=== PATIENT | female | born 1945 | race Caucasian/White ===

== ENCOUNTER 2022-07-21 11:49 | Observation (INO) | payer MEDICARE, OTHER ==
[~2022-07-21] VITALS: Ht 160 cm; Wt 57.3 kg
[2022-07-21] MEDS ORDERED: OYST1TAB PO (13:11)
[2022-07-21] MEDS ORDERED: VITMTA PO (13:11)
[2022-07-21] MEDS ORDERED: VITA100093 PO (13:11)
[2022-07-21] MEDS ORDERED: HOME MED LIST COMPLETE! XX SCH (13:15)
[2022-07-21 13:35] LABS: BASO # 0.1 10^3/uL (0.0-0.2); BASO % 0.5 % (0.0-1.0); EOS % 0.3 % (0.0-3.0); HEMATOCRIT 38.8 % (36.0-47.0); HEMOGLOBIN 12.4 g/dl (12.0-15.5); LYMPH # 1.6 10^3/uL (1.5-5.0); LYMPH % 14.7 % (24.0-44.0); MEAN CORPUSCULAR HEMOGLOBIN 29.8 pg (27.0-33.0); MEAN CORPUSCULAR VOLUME 93.3 fl (80.0-96.0); MONO # 0.7 10^3/uL (0.0-0.8); NEUTROPHILS # 8.5 10^3/uL (1.5-8.5); NEUTROPHILS % 77.6 % (36.0-66.0); PLATELET COUNT, AUTOMATED 358 10^3/uL (150-450); RED BLOOD COUNT 4.16 10^6/uL (4.00-5.40); WHITE BLOOD COUNT 10.9 10^3/uL (4.0-10.0)
[2022-07-21 14:04] LABS: BLOOD UREA NITROGEN 17 MG/DL (9-23); CALCIUM LEVEL 9.4 MG/DL (8.3-10.6); CARBON DIOXIDE LEVEL 27 MMOL/L (20-31); CHLORIDE LEVEL 104 MMOL/L (98-107); CREATININE FOR GFR 0.72 MG/DL (0.55-1.30); GLOMERULAR FILTRATION RATE > 60.0 (>39); GLUCOSE, FASTING 115 MG/DL (74-106); POTASSIUM SERUM 4.1 MMOL/L (3.5-5.1); SODIUM LEVEL 138 MMOL/L (136-145)
[2022-07-21 14:22] LABS: RSV AMPLIFICATION NEGATIVE (NEGATIVE)
[2022-07-21] MEDS ORDERED: MORPHINE 2 MG/ML 1ML VIAL IV ONE (14:25)
[2022-07-21] MEDS ORDERED: SUGAMMADEX SODIUM 500 MG/5 ML VIAL (BRIDION) As Ordered ONE (17:33)
[2022-07-21] MEDS ORDERED: ONDANSETRON 4MG 2ML VIAL As Ordered ONE (17:33)
[2022-07-21] MEDS ORDERED: MIDAZOLAM INJ 2MG/2ML VIAL As Ordered ONE (17:33)
[2022-07-21] MEDS ORDERED: PHENYLephrine 500MCG 5ML (100MCG/ML) SYRINGE As Ordered ONE (17:33)
[2022-07-21] MEDS ORDERED: propofoL 200 MG/20 ML VIAL As Ordered ONE (17:33)
[2022-07-21] MEDS ORDERED: fentaNYL 100 MCG/2 ML INJECTION As Ordered ONE (17:33)
[2022-07-21] MEDS ORDERED: LIDOCAINE 2% 100MG/5ML SDV (FOR ANES.) As Ordered ONE (17:33)
[2022-07-21] MEDS ORDERED: ROCURONIUM BROMIDE 50MG/5ML VIAL As Ordered ONE (17:33)
[2022-07-21] MEDS ORDERED: ceFAZolin 2 GM/D5W 50 ML IV BAG As Ordered ONE (17:47)
[2022-07-21] MEDS ORDERED: ACETAMINOPHEN 1000MG 100ML IV BAG As Ordered ONE (18:03)
[2022-07-21] MEDS ORDERED: ePHEDrine SULFATE 25 MG/5 ML(5MG/ML) SYRINGE As Ordered ONE (18:33)
[2022-07-21] MEDS ORDERED: ONDANSETRON 4MG 2ML VIAL IV PRN (19:10)
[2022-07-21] MEDS ORDERED: fentaNYL 100 MCG/2 ML INJECTION IV PRN (19:10)
[2022-07-21] MEDS ORDERED: HYDROMORPHONE HCL 0.5 MG/ 0.5 ML SYRINGE IV PRN (19:10)
[2022-07-21] MEDS ORDERED: oxyCODONE 5MG TAB PO PRN (19:10)
[2022-07-21] MEDS ORDERED: LR 1,000 ML IV SCH ×2 (19:10→20:00)
[2022-07-21 21:15] VITALS: BP 162/82; TEMP 98.2; O2SAT 94
[2022-07-21] MEDS ORDERED: amLODIPine 5 MG TAB PO ONE (21:35)
[2022-07-21 21:49] VITALS: BP 135/70; TEMP 97.9; O2SAT 96
[2022-07-21] MEDS ORDERED: CEPACOL LOZENGE PO PRN (21:55)
[2022-07-21 21:57] VITALS: BP 135/70
[2022-07-21 22:31] VITALS: BP 137/69; TEMP 98.1; O2SAT 98
[2022-07-21 23:38] VITALS: BP 124/63; TEMP 98.1; O2SAT 99
[2022-07-22 00:43] VITALS: BP 126/62; TEMP 97.9; O2SAT 100
[2022-07-22 04:46] VITALS: BP 136/61; TEMP 98.1; O2SAT 99
[2022-07-22 07:17] LABS: HEMATOCRIT 32.6 % (36.0-47.0); HEMOGLOBIN 10.7 g/dl (12.0-15.5); MEAN CORPUSCULAR HEMOGLOBIN 30.1 pg (27.0-33.0); MEAN CORPUSCULAR HGB CONC 32.8 g/dl (32.0-36.5); MEAN CORPUSCULAR VOLUME 91.8 fl (80.0-96.0); PLATELET COUNT, AUTOMATED 331 10^3/uL (150-450); RED BLOOD COUNT 3.55 10^6/uL (4.00-5.40)
[2022-07-22 07:45] LABS: BLOOD UREA NITROGEN 17 MG/DL (9-23); CALCIUM LEVEL 8.5 MG/DL (8.3-10.6); CARBON DIOXIDE LEVEL 28 MMOL/L (20-31); CHLORIDE LEVEL 103 MMOL/L (98-107); CREATININE FOR GFR 0.75 MG/DL (0.55-1.30); GLOMERULAR FILTRATION RATE > 60.0 (>39); GLUCOSE, FASTING 108 MG/DL (74-106); POTASSIUM SERUM 4.5 MMOL/L (3.5-5.1); SODIUM LEVEL 136 MMOL/L (136-145)
[2022-07-22] MEDS: VITAMIN D 1,000 INTERNATIONAL UNITS TABLET PO SCH (09:37)
[2022-07-22] MEDS: MULTIVITAMINS/MINERALS THERAP 1 TAB PO SCH (09:37)
[2022-07-22] MEDS: OYSTER SHELL CALCIUM 500 MG TAB PO SCH (09:37)
[2022-07-22] MEDS: MORPHINE 2 MG/ML 1ML VIAL IV PRN (11:53)
[2022-07-22] MEDS: ENOXAPARIN 40MG/0.4ML SYRINGE (J1650 PER 10MG) SC SCH (11:54)
[2022-07-22 14:05] VITALS: BP 126/66; TEMP 97.9; O2SAT 98
[2022-07-22 18:00] VITALS: BP 130/72; TEMP 98; O2SAT 97
[2022-07-22] MEDS: MORPHINE 4 MG/ML 1ML VIAL IV PRN (20:50)
[2022-07-22 21:30] VITALS: BP 133/69; TEMP 98.1; O2SAT 91
[2022-07-23] MEDS: MORPHINE 2 MG/ML 1ML VIAL IV PRN ×2 (02:50→19:57)
[2022-07-23 06:00] VITALS: BP 130/71; TEMP 97.5; O2SAT 94
[2022-07-23 07:09] LABS: HEMATOCRIT 31.4 % (36.0-47.0); HEMOGLOBIN 10.2 g/dl (12.0-15.5); MEAN CORPUSCULAR HEMOGLOBIN 29.8 pg (27.0-33.0); MEAN CORPUSCULAR HGB CONC 32.5 g/dl (32.0-36.5); MEAN CORPUSCULAR VOLUME 91.8 fl (80.0-96.0); PLATELET COUNT, AUTOMATED 320 10^3/uL (150-450); RED BLOOD COUNT 3.42 10^6/uL (4.00-5.40); WHITE BLOOD COUNT 13.5 10^3/uL (4.0-10.0)
[2022-07-23] MEDS: MORPHINE 4 MG/ML 1ML VIAL IV PRN ×2 (08:06→13:23)
[2022-07-23] MEDS: ENOXAPARIN 40MG/0.4ML SYRINGE (J1650 PER 10MG) SC SCH (09:46)
[2022-07-23] MEDS: MULTIVITAMINS/MINERALS THERAP 1 TAB PO SCH (09:46)
[2022-07-23] MEDS: VITAMIN D 1,000 INTERNATIONAL UNITS TABLET PO SCH (09:47)
[2022-07-23] MEDS: OYSTER SHELL CALCIUM 500 MG TAB PO SCH (09:47)
[2022-07-23 14:00] VITALS: BP 142/67; TEMP 98.6; O2SAT 95
[2022-07-23 22:10] VITALS: BP 136/69; TEMP 98.3; O2SAT 95
[2022-07-24 06:00] VITALS: BP 137/73; TEMP 98.8; O2SAT 96
[2022-07-24 06:16] LABS: HEMOGLOBIN 10.2 g/dl (12.0-15.5); MEAN CORPUSCULAR HEMOGLOBIN 29.7 pg (27.0-33.0); MEAN CORPUSCULAR HGB CONC 32.9 g/dl (32.0-36.5); MEAN CORPUSCULAR VOLUME 90.1 fl (80.0-96.0); PLATELET COUNT, AUTOMATED 287 10^3/uL (150-450); RED BLOOD COUNT 3.44 10^6/uL (4.00-5.40); WHITE BLOOD COUNT 15.6 10^3/uL (4.0-10.0)
[2022-07-24] MEDS ORDERED: ACETAMINOPHEN 500 MG TAB PO ONE (08:40)
[2022-07-24] MEDS: MULTIVITAMINS/MINERALS THERAP 1 TAB PO SCH (08:58)
[2022-07-24] MEDS: ENOXAPARIN 40MG/0.4ML SYRINGE (J1650 PER 10MG) SC SCH (08:59)
[2022-07-24] MEDS: OYSTER SHELL CALCIUM 500 MG TAB PO SCH (08:59)
[2022-07-24] MEDS: VITAMIN D 1,000 INTERNATIONAL UNITS TABLET PO SCH (08:59)
[2022-07-24] MEDS ORDERED: FUROSEMIDE 20 MG TAB PO ONE (09:30)
[2022-07-24 14:00] VITALS: BP 134/73; TEMP 98.6; O2SAT 97
[2022-07-24] MEDS: ACETAMINOPHEN 500 MG TAB PO PRN ×2 (14:50→21:04)
[2022-07-24] MEDS: MORPHINE 2 MG/ML 1ML VIAL IV PRN (16:57)
[2022-07-24 22:00] VITALS: BP 131/68; TEMP 98.4; O2SAT 96
[2022-07-25 06:00] VITALS: BP 130/71; TEMP 97.7; O2SAT 96
[2022-07-25 06:31] LABS: HEMATOCRIT 30.1 % (36.0-47.0); MEAN CORPUSCULAR HEMOGLOBIN 30.2 pg (27.0-33.0); MEAN CORPUSCULAR HGB CONC 33.2 g/dl (32.0-36.5); MEAN CORPUSCULAR VOLUME 90.9 fl (80.0-96.0); PLATELET COUNT, AUTOMATED 343 10^3/uL (150-450); RED BLOOD COUNT 3.31 10^6/uL (4.00-5.40); WHITE BLOOD COUNT 19.5 10^3/uL (4.0-10.0)
[2022-07-25] MEDS: ACETAMINOPHEN 500 MG TAB PO PRN ×2 (06:38→21:18)
[2022-07-25 06:59] LABS: BLOOD UREA NITROGEN 25 MG/DL (9-23); CALCIUM LEVEL 8.8 MG/DL (8.3-10.6); CARBON DIOXIDE LEVEL 26 MMOL/L (20-31); CHLORIDE LEVEL 101 MMOL/L (98-107); CREATININE FOR GFR 0.66 MG/DL (0.55-1.30); GLOMERULAR FILTRATION RATE > 60.0 (>39); GLUCOSE, FASTING 116 MG/DL (74-106); PHOSPHORUS LEVEL 3.9 MG/DL (2.4-5.1); POTASSIUM SERUM 4.2 MMOL/L (3.5-5.1); SODIUM LEVEL 134 MMOL/L (136-145)
[2022-07-25] MEDS: VITAMIN D 1,000 INTERNATIONAL UNITS TABLET PO SCH (09:05)
[2022-07-25] MEDS: MULTIVITAMINS/MINERALS THERAP 1 TAB PO SCH (09:05)
[2022-07-25] MEDS: OYSTER SHELL CALCIUM 500 MG TAB PO SCH (09:05)
[2022-07-25] MEDS: ENOXAPARIN 40MG/0.4ML SYRINGE (J1650 PER 10MG) SC SCH (09:06)
[2022-07-25] MEDS ORDERED: NS 1,000 ML IV SCH (11:40)
[2022-07-25 21:20] VITALS: BP 131/72; TEMP 98.6; O2SAT 98
[2022-07-25 22:48] VITALS: BP 133/73; TEMP 97.5; O2SAT 97
[2022-07-26 05:37] VITALS: BP 132/74; TEMP 97.9; O2SAT 97
[2022-07-26] MEDS ORDERED: LACTOBACILLUS ACIDOPHILUS CAP (BACID) PO SCH (08:00)
[2022-07-26 08:27] LABS: BASO # 0.1 10^3/uL (0.0-0.2); BASO % 0.5 % (0.0-1.0); EOS # 0.1 10^3/uL (0.0-0.5); EOS % 0.6 % (0.0-3.0); HEMATOCRIT 27.1 % (36.0-47.0); LYMPH # 1.4 10^3/uL (1.5-5.0); LYMPH % 10.8 % (24.0-44.0); MEAN CORPUSCULAR HEMOGLOBIN 30.2 pg (27.0-33.0); MEAN CORPUSCULAR HGB CONC 33.2 g/dl (32.0-36.5); MEAN CORPUSCULAR VOLUME 90.9 fl (80.0-96.0); MONO # 1.4 10^3/uL (0.0-0.8); MONO % 10.2 % (2.0-8.0); NEUTROPHILS # 10.3 10^3/uL (1.5-8.5); NEUTROPHILS % 76.9 % (36.0-66.0); PLATELET COUNT, AUTOMATED 370 10^3/uL (150-450); RED BLOOD COUNT 2.98 10^6/uL (4.00-5.40); WHITE BLOOD COUNT 13.4 10^3/uL (4.0-10.0)
[2022-07-26 08:46] LABS: ALBUMIN 2.5 G/DL (3.2-5.2); ALKALINE PHOSPHATASE 64 U/L (46-116); ALT/SGPT 21 U/L (7.0-40); AST/SGOT 21 U/L (<34); BILIRUBIN,TOTAL 0.6 MG/DL (0.3-1.2); BLOOD UREA NITROGEN 25 MG/DL (9-23); CARBON DIOXIDE LEVEL 25 MMOL/L (20-31); CHLORIDE LEVEL 104 MMOL/L (98-107); CREATININE FOR GFR 0.59 MG/DL (0.55-1.30); GLOMERULAR FILTRATION RATE > 60.0 (>39); GLUCOSE, FASTING 93 MG/DL (74-106); MAGNESIUM LEVEL 1.9 MG/DL (1.8-2.4); PHOSPHORUS LEVEL 3.5 MG/DL (2.4-5.1); POTASSIUM SERUM 3.8 MMOL/L (3.5-5.1); SODIUM LEVEL 137 MMOL/L (136-145); TOTAL PROTEIN 5.9 G/DL (5.7-8.2)
[2022-07-26] MEDS: MULTIVITAMINS/MINERALS THERAP 1 TAB PO SCH (09:22)
[2022-07-26] MEDS: VITAMIN D 1,000 INTERNATIONAL UNITS TABLET PO SCH (09:22)
[2022-07-26] MEDS: ENOXAPARIN 40MG/0.4ML SYRINGE (J1650 PER 10MG) SC SCH (09:23)
[2022-07-26] MEDS: OYSTER SHELL CALCIUM 500 MG TAB PO SCH (09:23)
[2022-07-26] MEDS ORDERED: LOVE1INJ SC (10:01)
[2022-07-26] MEDS ORDERED: APAP325T4 PO (10:01)
[2022-07-26] MEDS ORDERED: PERC5TAB12 PO (10:01)
[2022-07-26] MEDS ORDERED: PROB250C PO (10:53)
[2022-07-26 11:00] LABS: IRON (FE) 13 UG/DL (50-170); PERCENT SATURATION 5.8 % (13.2-45.0); TOTAL IRON BINDING CAPACITY 226 UG/DL (250-425)
[2022-07-26 11:03] LABS: FERRITIN 176.6 NG/ML (7.3-270.7)
== END 2022-07-26 12:20 ==
LOC: EDBD 11:49 → M ED 11:49 → M ED INP 14:35 → M MS5PR 21:15
PROVIDERS: ADMIT Internal Medicine; ATTEND Internal Medicine
DX: S82.141A Displaced bicondylar fracture of right tibia, initial encounter for closed fracture (principal); S83.101A Unspecified subluxation of right knee, initial encounter; S70.351A Superficial foreign body, right thigh, initial encounter; W57.XXXA Bitten or stung by nonvenomous insect and other nonvenomous arthropods, initial encounter; W01.10XA Fall on same level from slipping, tripping and stumbling with subsequent striking against unspecified object, initial encounter; Y92.89 Other specified places as the place of occurrence of the external cause; Y93.K9 Activity, other involving animal care; D72.828 Other elevated white blood cell count; R19.7 Diarrhea, unspecified; R03.0 Elevated blood-pressure reading, without diagnosis of hypertension; M81.0 Age-related osteoporosis without current pathological fracture; M79.89 Other specified soft tissue disorders; Z88.2 Allergy status to sulfonamides; Z79.899 Other long term (current) drug therapy
CPT/HCPCS: 10120; 20690; 36415; 73552; 73564; 73590; 73700; 76000; 80048; 85025; 85027; 87040; 87168; 87631; 87801; 93005; 93041; 93970; 94760; 96361; 96372; 96374; 96376; 97110; 97116; 97161; 97165; 97530; 99285; C1713; C9290; G0378; J0131; J0690; J1100; J1650; J2250; J2370; J2405; J3010

== ENCOUNTER 2022-07-26 10:42 | Inpatient (IN) | payer MEDICARE, OTHER ==
[~2022-07-26] VITALS: Ht 160 cm; Wt 59.8 kg
[~2022-07-26 10:42] MED LIST: APAP325T4 PO; LOVE1INJ SC; OYST1TAB PO; PERC5TAB12 PO; VITA100093 PO; VITMTA PO
[2022-07-26] MEDS ORDERED: PROB250C PO (10:53)
[2022-07-26 12:15] VITALS: BP 148/69; TEMP 98; O2SAT 99
[2022-07-26 14:00] VITALS: BP 141/65; TEMP 98.2; O2SAT 97
[2022-07-26] MEDS ORDERED: traZODone 25MG PER 1/2 TABLET PO PRN (16:25)
[2022-07-26] MEDS: LACTOBACILLUS ACIDOPHILUS CAP (BACID) PO SCH (17:07)
[2022-07-26] MEDS: ACETAMINOPHEN 500 MG TAB PO SCH ×2 (17:07→20:50)
[2022-07-26 20:00] VITALS: BP 131/61; TEMP 98.3; O2SAT 96
[2022-07-26] MEDS: DOCUSATE SODIUM 100MG CAPSULE PO SCH (20:51)
[2022-07-26] MEDS: SENNA 8.6 MG TAB (SENOKOT) PO SCH (20:51)
[2022-07-27] MEDS: ACETAMINOPHEN 500 MG TAB PO SCH ×3 (04:36→21:15)
[2022-07-27 06:00] VITALS: BP 124/59; TEMP 99.3; O2SAT 97
[2022-07-27 06:36] LABS: BASO # 0.1 10^3/uL (0.0-0.2); BASO % 0.4 % (0.0-1.0); EOS # 0.1 10^3/uL (0.0-0.5); EOS % 0.6 % (0.0-3.0); HEMATOCRIT 25.2 % (36.0-47.0); HEMOGLOBIN 8.5 g/dl (12.0-15.5); LYMPH # 1.3 10^3/uL (1.5-5.0); LYMPH % 9.1 % (24.0-44.0); MEAN CORPUSCULAR HEMOGLOBIN 30.5 pg (27.0-33.0); MEAN CORPUSCULAR HGB CONC 33.7 g/dl (32.0-36.5); MEAN CORPUSCULAR VOLUME 90.3 fl (80.0-96.0); MONO # 1.4 10^3/uL (0.0-0.8); MONO % 9.7 % (2.0-8.0); NEUTROPHILS # 11.3 10^3/uL (1.5-8.5); NEUTROPHILS % 79.5 % (36.0-66.0); PLATELET COUNT, AUTOMATED 382 10^3/uL (150-450); RED BLOOD COUNT 2.79 10^6/uL (4.00-5.40); WHITE BLOOD COUNT 14.3 10^3/uL (4.0-10.0)
[2022-07-27 07:28] LABS: ALBUMIN 2.4 G/DL (3.2-5.2); ALKALINE PHOSPHATASE 64 U/L (46-116); ALT/SGPT 29 U/L (7.0-40); AST/SGOT 30 U/L (<34); BILIRUBIN,TOTAL 0.6 MG/DL (0.3-1.2); BLOOD UREA NITROGEN 22 MG/DL (9-23); CALCIUM LEVEL 7.8 MG/DL (8.3-10.6); CARBON DIOXIDE LEVEL 26 MMOL/L (20-31); CHLORIDE LEVEL 106 MMOL/L (98-107); CREATININE FOR GFR 0.56 MG/DL (0.55-1.30); GLOMERULAR FILTRATION RATE > 60.0 (>39); GLUCOSE, FASTING 106 MG/DL (74-106); POTASSIUM SERUM 3.8 MMOL/L (3.5-5.1); SODIUM LEVEL 137 MMOL/L (136-145); TOTAL PROTEIN 5.5 G/DL (5.7-8.2)
[2022-07-27] MEDS: DOCUSATE SODIUM 100MG CAPSULE PO SCH ×2 (09:00→21:14)
[2022-07-27] MEDS: OYSTER SHELL CALCIUM 500 MG TAB PO SCH (09:40)
[2022-07-27] MEDS: LACTOBACILLUS ACIDOPHILUS CAP (BACID) PO SCH ×2 (09:40→18:30)
[2022-07-27] MEDS: MULTIVITAMINS/MINERALS THERAP 1 TAB PO SCH (09:40)
[2022-07-27] MEDS: ENOXAPARIN 40MG/0.4ML SYRINGE (J1650 PER 10MG) SC SCH (09:41)
[2022-07-27] MEDS: PANTOPRAZOLE 40MG TAB (PROTONIX) PO SCH (09:41)
[2022-07-27] MEDS: VITAMIN D 1,000 INTERNATIONAL UNITS TABLET PO SCH (09:41)
[2022-07-27] MEDS: DOXYCYCLINE HYCLATE 100MG TABLET PO SCH ×2 (09:45→21:14)
[2022-07-27 10:00] LABS: HEMATOCRIT 27.1 % (36.0-47.0); HEMOGLOBIN 8.9 g/dl (12.0-15.5)
[2022-07-27] MEDS ORDERED: MIRALAX *UNIT DOSE* 17GM PACKET PO PRN (10:15)
[2022-07-27] MEDS: FERROUS SULFATE 325MG TAB PO SCH ×2 (12:07→21:15)
[2022-07-27] MEDS ORDERED: ACETAMINOPHEN 325 MG TAB PO ONE (13:50)
[2022-07-27 14:00] VITALS: BP 131/63; TEMP 99.3; O2SAT 98
[2022-07-27 20:15] VITALS: BP 128/59; TEMP 99.3; O2SAT 96
[2022-07-27] MEDS: SENNA 8.6 MG TAB (SENOKOT) PO SCH (21:15)
[2022-07-28 05:45] VITALS: BP 123/59; TEMP 98.4; O2SAT 96
[2022-07-28] MEDS: OYSTER SHELL CALCIUM 500 MG TAB PO SCH (07:50)
[2022-07-28] MEDS: FERROUS SULFATE 325MG TAB PO SCH ×2 (07:51→21:33)
[2022-07-28] MEDS: MULTIVITAMINS/MINERALS THERAP 1 TAB PO SCH (07:51)
[2022-07-28] MEDS: DOXYCYCLINE HYCLATE 100MG TABLET PO SCH ×2 (07:51→21:34)
[2022-07-28] MEDS: PANTOPRAZOLE 40MG TAB (PROTONIX) PO SCH (07:51)
[2022-07-28] MEDS: LACTOBACILLUS ACIDOPHILUS CAP (BACID) PO SCH ×2 (07:51→17:43)
[2022-07-28] MEDS: ACETAMINOPHEN 500 MG TAB PO SCH ×3 (07:52→21:33)
[2022-07-28] MEDS: ENOXAPARIN 40MG/0.4ML SYRINGE (J1650 PER 10MG) SC SCH (07:53)
[2022-07-28] MEDS: VITAMIN D 1,000 INTERNATIONAL UNITS TABLET PO SCH (07:54)
[2022-07-28] MEDS: METOPROLOL TART 12.5 MG PER 1/2 TAB PO SCH ×2 (09:00→21:33)
[2022-07-28] MEDS: DOCUSATE SODIUM 100MG CAPSULE PO SCH ×2 (09:00→21:33)
[2022-07-28 09:03] LABS: BASO # 0.1 10^3/uL (0.0-0.2); BASO % 0.6 % (0.0-1.0); EOS # 0.1 10^3/uL (0.0-0.5); EOS % 0.6 % (0.0-3.0); HEMATOCRIT 26.2 % (36.0-47.0); HEMOGLOBIN 8.6 g/dl (12.0-15.5); LYMPH # 1.7 10^3/uL (1.5-5.0); LYMPH % 10.7 % (24.0-44.0); MEAN CORPUSCULAR HEMOGLOBIN 30.1 pg (27.0-33.0); MEAN CORPUSCULAR HGB CONC 32.8 g/dl (32.0-36.5); MEAN CORPUSCULAR VOLUME 91.6 fl (80.0-96.0); MONO % 6.4 % (2.0-8.0); NEUTROPHILS # 12.6 10^3/uL (1.5-8.5); NEUTROPHILS % 80.1 % (36.0-66.0); PLATELET COUNT, AUTOMATED 486 10^3/uL (150-450); RED BLOOD COUNT 2.86 10^6/uL (4.00-5.40); WHITE BLOOD COUNT 15.7 10^3/uL (4.0-10.0)
[2022-07-28] MEDS: FUROSEMIDE 20 MG TAB PO SCH (11:11)
[2022-07-28 11:12] LABS: ERYTHROCYTE SEDIMENTATION RATE 109 mm/hr (0-30)
[2022-07-28 14:00] VITALS: BP 128/59; O2SAT 94
[2022-07-28 20:00] VITALS: BP 118/57; TEMP 98.5; O2SAT 98
[2022-07-28] MEDS: SENNA 8.6 MG TAB (SENOKOT) PO SCH (21:34)
[2022-07-29 05:19] VITALS: BP 124/58; TEMP 98.6; O2SAT 96
[2022-07-29 06:56] LABS: BASO # 0.1 10^3/uL (0.0-0.2); BASO % 0.6 % (0.0-1.0); EOS # 0.3 10^3/uL (0.0-0.5); EOS % 1.8 % (0.0-3.0); HEMOGLOBIN 8.6 g/dl (12.0-15.5); LYMPH # 2.6 10^3/uL (1.5-5.0); LYMPH % 18.4 % (24.0-44.0); MEAN CORPUSCULAR HEMOGLOBIN 30.1 pg (27.0-33.0); MEAN CORPUSCULAR HGB CONC 33.1 g/dl (32.0-36.5); MEAN CORPUSCULAR VOLUME 90.9 fl (80.0-96.0); MONO # 1.1 10^3/uL (0.0-0.8); MONO % 7.7 % (2.0-8.0); NEUTROPHILS % 69.7 % (36.0-66.0); PLATELET COUNT, AUTOMATED 560 10^3/uL (150-450); RED BLOOD COUNT 2.86 10^6/uL (4.00-5.40); WHITE BLOOD COUNT 14.3 10^3/uL (4.0-10.0)
[2022-07-29 07:12] LABS: BLOOD UREA NITROGEN 19 MG/DL (9-23); CALCIUM LEVEL 8.9 MG/DL (8.3-10.6); CARBON DIOXIDE LEVEL 26 MMOL/L (20-31); CHLORIDE LEVEL 105 MMOL/L (98-107); CREATININE FOR GFR 0.59 MG/DL (0.55-1.30); GLOMERULAR FILTRATION RATE > 60.0 (>39); GLUCOSE, FASTING 95 MG/DL (74-106); POTASSIUM SERUM 3.9 MMOL/L (3.5-5.1); SODIUM LEVEL 140 MMOL/L (136-145)
[2022-07-29 07:38] LABS: ERYTHROCYTE SEDIMENTATION RATE 103 mm/hr (0-30)
[2022-07-29] MEDS: VITAMIN D 1,000 INTERNATIONAL UNITS TABLET PO SCH (09:14)
[2022-07-29] MEDS: MULTIVITAMINS/MINERALS THERAP 1 TAB PO SCH (09:14)
[2022-07-29] MEDS: FUROSEMIDE 20 MG TAB PO SCH (09:14)
[2022-07-29] MEDS: FERROUS SULFATE 325MG TAB PO SCH ×2 (09:14→21:08)
[2022-07-29] MEDS: LACTOBACILLUS ACIDOPHILUS CAP (BACID) PO SCH ×2 (09:14→17:16)
[2022-07-29] MEDS: DOCUSATE SODIUM 100MG CAPSULE PO SCH (09:14)
[2022-07-29] MEDS: DOXYCYCLINE HYCLATE 100MG TABLET PO SCH (09:14)
[2022-07-29] MEDS: OYSTER SHELL CALCIUM 500 MG TAB PO SCH (09:14)
[2022-07-29] MEDS: ENOXAPARIN 40MG/0.4ML SYRINGE (J1650 PER 10MG) SC SCH (09:14)
[2022-07-29] MEDS: PANTOPRAZOLE 40MG TAB (PROTONIX) PO SCH (09:14)
[2022-07-29] MEDS: METOPROLOL TART 12.5 MG PER 1/2 TAB PO SCH ×2 (09:15→21:07)
[2022-07-29] MEDS: ACETAMINOPHEN 500 MG TAB PO SCH ×3 (09:16→21:08)
[2022-07-29 20:20] VITALS: BP 116/57; TEMP 98.1; O2SAT 97
[2022-07-29] MEDS: SENNA 8.6 MG TAB (SENOKOT) PO SCH (21:07)
[2022-07-30 06:25] VITALS: BP 125/60; TEMP 98.1; O2SAT 97
[2022-07-30] MEDS: MULTIVITAMINS/MINERALS THERAP 1 TAB PO SCH (07:56)
[2022-07-30] MEDS: FERROUS SULFATE 325MG TAB PO SCH ×2 (07:56→20:24)
[2022-07-30] MEDS: OYSTER SHELL CALCIUM 500 MG TAB PO SCH (07:56)
[2022-07-30] MEDS: PANTOPRAZOLE 40MG TAB (PROTONIX) PO SCH (07:56)
[2022-07-30] MEDS: LACTOBACILLUS ACIDOPHILUS CAP (BACID) PO SCH ×2 (07:56→17:07)
[2022-07-30] MEDS: ACETAMINOPHEN 500 MG TAB PO SCH ×3 (07:57→20:24)
[2022-07-30] MEDS: VITAMIN D 1,000 INTERNATIONAL UNITS TABLET PO SCH (07:57)
[2022-07-30] MEDS: FUROSEMIDE 20 MG TAB PO SCH (07:57)
[2022-07-30] MEDS: METOPROLOL TART 12.5 MG PER 1/2 TAB PO SCH ×2 (07:57→20:24)
[2022-07-30] MEDS: ENOXAPARIN 40MG/0.4ML SYRINGE (J1650 PER 10MG) SC SCH (07:58)
[2022-07-30 13:52] VITALS: BP 128/60; TEMP 98.7; O2SAT 98
[2022-07-30 20:00] VITALS: BP 127/61; TEMP 98.5; O2SAT 98
[2022-07-30] MEDS: SENNA 8.6 MG TAB (SENOKOT) PO SCH (20:24)
[2022-07-31 06:00] VITALS: BP 118/56; TEMP 98.2; O2SAT 97
[2022-07-31] MEDS: PANTOPRAZOLE 40MG TAB (PROTONIX) PO SCH (07:41)
[2022-07-31] MEDS: MULTIVITAMINS/MINERALS THERAP 1 TAB PO SCH (07:41)
[2022-07-31] MEDS: ACETAMINOPHEN 500 MG TAB PO SCH ×3 (07:41→21:49)
[2022-07-31] MEDS: LACTOBACILLUS ACIDOPHILUS CAP (BACID) PO SCH ×2 (07:41→16:53)
[2022-07-31] MEDS: FERROUS SULFATE 325MG TAB PO SCH ×2 (07:41→21:48)
[2022-07-31] MEDS: METOPROLOL TART 12.5 MG PER 1/2 TAB PO SCH ×2 (07:42→21:48)
[2022-07-31] MEDS: OYSTER SHELL CALCIUM 500 MG TAB PO SCH (07:42)
[2022-07-31] MEDS: FUROSEMIDE 20 MG TAB PO SCH (07:42)
[2022-07-31] MEDS: ENOXAPARIN 40MG/0.4ML SYRINGE (J1650 PER 10MG) SC SCH (07:42)
[2022-07-31] MEDS: VITAMIN D 1,000 INTERNATIONAL UNITS TABLET PO SCH (07:42)
[2022-07-31 14:00] VITALS: BP 113/54; TEMP 98.2; O2SAT 98
[2022-07-31 20:00] VITALS: BP 127/63; TEMP 98.2; O2SAT 98
[2022-07-31] MEDS: SENNA 8.6 MG TAB (SENOKOT) PO SCH (21:00)
[2022-08-01 06:00] VITALS: BP 116/61; TEMP 97.6; O2SAT 97
[2022-08-01] MEDS: MULTIVITAMINS/MINERALS THERAP 1 TAB PO SCH (07:38)
[2022-08-01] MEDS: LACTOBACILLUS ACIDOPHILUS CAP (BACID) PO SCH ×2 (07:38→16:53)
[2022-08-01] MEDS: FUROSEMIDE 20 MG TAB PO SCH (07:38)
[2022-08-01] MEDS: METOPROLOL TART 12.5 MG PER 1/2 TAB PO SCH ×2 (07:39→21:19)
[2022-08-01] MEDS: FERROUS SULFATE 325MG TAB PO SCH ×2 (07:39→21:19)
[2022-08-01] MEDS: VITAMIN D 1,000 INTERNATIONAL UNITS TABLET PO SCH (07:39)
[2022-08-01] MEDS: PANTOPRAZOLE 40MG TAB (PROTONIX) PO SCH (07:39)
[2022-08-01] MEDS: OYSTER SHELL CALCIUM 500 MG TAB PO SCH (07:39)
[2022-08-01] MEDS: ENOXAPARIN 40MG/0.4ML SYRINGE (J1650 PER 10MG) SC SCH (07:40)
[2022-08-01 08:38] VITALS: BP 109/58
[2022-08-01] MEDS: ACETAMINOPHEN 500 MG TAB PO SCH ×3 (09:07→21:18)
[2022-08-01 09:18] VITALS: BP_SYST 109; BP_SYST 97; BP_DIAS 56; BP_DIAS 68
[2022-08-01 14:00] VITALS: BP 102/59; TEMP 97.8; O2SAT 98
[2022-08-01 20:20] VITALS: BP 121/58; TEMP 98.2; O2SAT 100
[2022-08-01] MEDS: SENNA 8.6 MG TAB (SENOKOT) PO SCH (21:00)
[2022-08-02 05:36] VITALS: BP 113/60; TEMP 98; O2SAT 98
[2022-08-02 07:15] LABS: BASO # 0.1 10^3/uL (0.0-0.2); BASO % 0.8 % (0.0-1.0); EOS # 0.2 10^3/uL (0.0-0.5); EOS % 1.7 % (0.0-3.0); LYMPH # 2.6 10^3/uL (1.5-5.0); LYMPH % 17.9 % (24.0-44.0); MEAN CORPUSCULAR HEMOGLOBIN 29.8 pg (27.0-33.0); MEAN CORPUSCULAR HGB CONC 32.1 g/dl (32.0-36.5); MEAN CORPUSCULAR VOLUME 92.7 fl (80.0-96.0); MONO # 0.9 10^3/uL (0.0-0.8); MONO % 6.5 % (2.0-8.0); NEUTROPHILS # 10.1 10^3/uL (1.5-8.5); NEUTROPHILS % 70.4 % (36.0-66.0); PLATELET COUNT, AUTOMATED 723 10^3/uL (150-450); RED BLOOD COUNT 3.02 10^6/uL (4.00-5.40); WHITE BLOOD COUNT 14.4 10^3/uL (4.0-10.0)
[2022-08-02 07:38] LABS: BLOOD UREA NITROGEN 19 MG/DL (9-23); CALCIUM LEVEL 8.4 MG/DL (8.3-10.6); CARBON DIOXIDE LEVEL 27 MMOL/L (20-31); CHLORIDE LEVEL 106 MMOL/L (98-107); CREATININE FOR GFR 0.62 MG/DL (0.55-1.30); GLOMERULAR FILTRATION RATE > 60.0 (>39); GLUCOSE, FASTING 102 MG/DL (74-106); POTASSIUM SERUM 4.5 MMOL/L (3.5-5.1); SODIUM LEVEL 140 MMOL/L (136-145)
[2022-08-02] MEDS: FERROUS SULFATE 325MG TAB PO SCH ×2 (08:49→21:22)
[2022-08-02] MEDS: VITAMIN D 1,000 INTERNATIONAL UNITS TABLET PO SCH (08:49)
[2022-08-02] MEDS: LACTOBACILLUS ACIDOPHILUS CAP (BACID) PO SCH ×2 (08:49→17:59)
[2022-08-02] MEDS: PANTOPRAZOLE 40MG TAB (PROTONIX) PO SCH (08:49)
[2022-08-02] MEDS: MULTIVITAMINS/MINERALS THERAP 1 TAB PO SCH (08:49)
[2022-08-02] MEDS: OYSTER SHELL CALCIUM 500 MG TAB PO SCH (08:49)
[2022-08-02] MEDS: FUROSEMIDE 20 MG TAB PO SCH (08:50)
[2022-08-02] MEDS: METOPROLOL TART 12.5 MG PER 1/2 TAB PO SCH ×2 (08:50→21:22)
[2022-08-02] MEDS: ACETAMINOPHEN 500 MG TAB PO SCH ×3 (08:51→21:22)
[2022-08-02] MEDS: ENOXAPARIN 40MG/0.4ML SYRINGE (J1650 PER 10MG) SC SCH (08:52)
[2022-08-02 14:00] VITALS: BP 112/56; TEMP 98.1; O2SAT 99
[2022-08-02 20:00] VITALS: BP 122/59; TEMP 98.3; O2SAT 98
[2022-08-02] MEDS: SENNA 8.6 MG TAB (SENOKOT) PO SCH (21:00)
[2022-08-03 06:00] VITALS: BP 114/56; TEMP 98.2; O2SAT 96
[2022-08-03] MEDS: OYSTER SHELL CALCIUM 500 MG TAB PO SCH (08:35)
[2022-08-03] MEDS: VITAMIN D 1,000 INTERNATIONAL UNITS TABLET PO SCH (08:35)
[2022-08-03] MEDS: PANTOPRAZOLE 40MG TAB (PROTONIX) PO SCH (08:35)
[2022-08-03] MEDS: MULTIVITAMINS/MINERALS THERAP 1 TAB PO SCH (08:35)
[2022-08-03] MEDS: LACTOBACILLUS ACIDOPHILUS CAP (BACID) PO SCH ×2 (08:35→16:51)
[2022-08-03] MEDS: FUROSEMIDE 20 MG TAB PO SCH (08:35)
[2022-08-03] MEDS: FERROUS SULFATE 325MG TAB PO SCH ×2 (08:35→21:00)
[2022-08-03] MEDS: ENOXAPARIN 40MG/0.4ML SYRINGE (J1650 PER 10MG) SC SCH (08:36)
[2022-08-03] MEDS: ACETAMINOPHEN 500 MG TAB PO SCH ×3 (08:36→21:00)
[2022-08-03] MEDS: METOPROLOL TART 12.5 MG PER 1/2 TAB PO SCH ×2 (08:36→21:01)
[2022-08-03 14:00] VITALS: BP 112/56; TEMP 97.9; O2SAT 97
[2022-08-03 20:38] VITALS: BP 127/58; TEMP 98.4; O2SAT 99
[2022-08-03] MEDS: SENNA 8.6 MG TAB (SENOKOT) PO SCH (21:00)
[2022-08-04] VITALS (8 sets, daily range): BP systolic 108–131; BP diastolic 55–64; TEMP 97.4–98.5; O2SAT 95–99
[2022-08-04] MEDS: PANTOPRAZOLE 40MG TAB (PROTONIX) PO SCH (07:35)
[2022-08-04] MEDS: FUROSEMIDE 20 MG TAB PO SCH (07:35)
[2022-08-04] MEDS: METOPROLOL TART 12.5 MG PER 1/2 TAB PO SCH ×2 (07:35→20:41)
[2022-08-04] MEDS: FERROUS SULFATE 325MG TAB PO SCH ×2 (07:36→20:41)
[2022-08-04] MEDS: ACETAMINOPHEN 500 MG TAB PO SCH ×3 (07:36→20:42)
[2022-08-04] MEDS: OYSTER SHELL CALCIUM 500 MG TAB PO SCH (07:36)
[2022-08-04] MEDS: LACTOBACILLUS ACIDOPHILUS CAP (BACID) PO SCH ×2 (07:36→18:00)
[2022-08-04] MEDS: VITAMIN D 1,000 INTERNATIONAL UNITS TABLET PO SCH (07:36)
[2022-08-04] MEDS: MULTIVITAMINS/MINERALS THERAP 1 TAB PO SCH (07:36)
[2022-08-04] MEDS: SENNA 8.6 MG TAB (SENOKOT) PO SCH (20:43)
[2022-08-04] MEDS: ceFAZolin SOD 2 GM in IV 1 EA IV SCH (20:43)
[2022-08-05 03:50] VITALS: BP 108/56; TEMP 98.3; O2SAT 97
[2022-08-05] MEDS: ceFAZolin SOD 2 GM in IV 1 EA IV SCH (04:07)
[2022-08-05 05:54] LABS: BASO # 0.1 10^3/uL (0.0-0.2); BASO % 0.3 % (0.0-1.0); EOS # 0.1 10^3/uL (0.0-0.5); EOS % 0.6 % (0.0-3.0); HEMATOCRIT 23.7 % (36.0-47.0); HEMOGLOBIN 7.7 g/dl (12.0-15.5); LYMPH # 2.4 10^3/uL (1.5-5.0); LYMPH % 15.1 % (24.0-44.0); MEAN CORPUSCULAR HEMOGLOBIN 30.2 pg (27.0-33.0); MEAN CORPUSCULAR HGB CONC 32.5 g/dl (32.0-36.5); MEAN CORPUSCULAR VOLUME 92.9 fl (80.0-96.0); MONO # 1.2 10^3/uL (0.0-0.8); MONO % 7.2 % (2.0-8.0); NEUTROPHILS # 12.1 10^3/uL (1.5-8.5); NEUTROPHILS % 75.5 % (36.0-66.0); PLATELET COUNT, AUTOMATED 638 10^3/uL (150-450); RED BLOOD COUNT 2.55 10^6/uL (4.00-5.40); WHITE BLOOD COUNT 16.1 10^3/uL (4.0-10.0)
[2022-08-05 06:00] VITALS: BP 107/53; TEMP 98.8; O2SAT 98
[2022-08-05 06:17] LABS: BLOOD UREA NITROGEN 16 MG/DL (9-23); CALCIUM LEVEL 7.8 MG/DL (8.3-10.6); CARBON DIOXIDE LEVEL 28 MMOL/L (20-31); CHLORIDE LEVEL 103 MMOL/L (98-107); CREATININE FOR GFR 0.67 MG/DL (0.55-1.30); GLOMERULAR FILTRATION RATE > 60.0 (>39); GLUCOSE, FASTING 101 MG/DL (74-106); POTASSIUM SERUM 4.5 MMOL/L (3.5-5.1); SODIUM LEVEL 136 MMOL/L (136-145)
[2022-08-05] MEDS: VITAMIN D 1,000 INTERNATIONAL UNITS TABLET PO SCH (08:03)
[2022-08-05] MEDS: OYSTER SHELL CALCIUM 500 MG TAB PO SCH (08:04)
[2022-08-05] MEDS: LACTOBACILLUS ACIDOPHILUS CAP (BACID) PO SCH ×2 (08:04→17:04)
[2022-08-05] MEDS: FUROSEMIDE 20 MG TAB PO SCH (08:04)
[2022-08-05] MEDS: FERROUS SULFATE 325MG TAB PO SCH ×2 (08:04→21:41)
[2022-08-05] MEDS: PANTOPRAZOLE 40MG TAB (PROTONIX) PO SCH (08:04)
[2022-08-05] MEDS: MULTIVITAMINS/MINERALS THERAP 1 TAB PO SCH (08:04)
[2022-08-05] MEDS: oxyCODONE 5MG TAB PO PRN ×2 (08:05→21:41)
[2022-08-05] MEDS: ACETAMINOPHEN 500 MG TAB PO SCH ×3 (08:05→21:40)
[2022-08-05] MEDS: METOPROLOL TART 12.5 MG PER 1/2 TAB PO SCH ×2 (08:07→21:42)
[2022-08-05] MEDS ORDERED: diphenhydrAMINE 50MG/ML VIAL IM ONE (10:00)
[2022-08-05] MEDS ORDERED: ACETAMINOPHEN TAB 650MG DOSE (2X325MG) PO ONE (10:00)
[2022-08-05] MEDS: GABAPENTIN 100 MG CAP PO SCH ×3 (12:22→21:40)
[2022-08-05 14:00] VITALS: BP 117/58; TEMP 98.5; O2SAT 98
[2022-08-05 20:00] VITALS: BP 115/55; TEMP 99.5; O2SAT 96
[2022-08-05] MEDS: SENNA 8.6 MG TAB (SENOKOT) PO SCH (21:00)
[2022-08-06 06:00] VITALS: BP 118/59; TEMP 99.5; O2SAT 98
[2022-08-06 06:54] LABS: BASO # 0.1 10^3/uL (0.0-0.2); BASO % 0.5 % (0.0-1.0); EOS # 0.1 10^3/uL (0.0-0.5); EOS % 0.8 % (0.0-3.0); HEMATOCRIT 25.6 % (36.0-47.0); HEMOGLOBIN 8.2 g/dl (12.0-15.5); LYMPH # 1.8 10^3/uL (1.5-5.0); LYMPH % 13.7 % (24.0-44.0); MEAN CORPUSCULAR HEMOGLOBIN 29.8 pg (27.0-33.0); MEAN CORPUSCULAR VOLUME 93.1 fl (80.0-96.0); MONO # 1.1 10^3/uL (0.0-0.8); MONO % 8.2 % (2.0-8.0); NEUTROPHILS % 75.1 % (36.0-66.0); PLATELET COUNT, AUTOMATED 599 10^3/uL (150-450); RED BLOOD COUNT 2.75 10^6/uL (4.00-5.40); WHITE BLOOD COUNT 13.3 10^3/uL (4.0-10.0)
[2022-08-06] MEDS: OYSTER SHELL CALCIUM 500 MG TAB PO SCH (08:09)
[2022-08-06] MEDS: GABAPENTIN 100 MG CAP PO SCH ×3 (08:09→21:56)
[2022-08-06] MEDS: FUROSEMIDE 20 MG TAB PO SCH (08:09)
[2022-08-06] MEDS: FERROUS SULFATE 325MG TAB PO SCH ×2 (08:09→21:57)
[2022-08-06] MEDS: MULTIVITAMINS/MINERALS THERAP 1 TAB PO SCH (08:10)
[2022-08-06] MEDS: VITAMIN D 1,000 INTERNATIONAL UNITS TABLET PO SCH (08:10)
[2022-08-06] MEDS: ACETAMINOPHEN 500 MG TAB PO SCH ×3 (08:10→21:57)
[2022-08-06] MEDS: METOPROLOL TART 12.5 MG PER 1/2 TAB PO SCH ×2 (08:10→21:00)
[2022-08-06] MEDS: LACTOBACILLUS ACIDOPHILUS CAP (BACID) PO SCH ×2 (08:10→16:53)
[2022-08-06] MEDS: PANTOPRAZOLE 40MG TAB (PROTONIX) PO SCH (08:10)
[2022-08-06 14:00] VITALS: BP 119/78; TEMP 98.1; O2SAT 97
[2022-08-06] MEDS: SENNA 8.6 MG TAB (SENOKOT) PO SCH (21:00)
[2022-08-06 21:30] VITALS: BP 109/58; TEMP 98.5; O2SAT 97
[2022-08-07 05:46] VITALS: BP 123/59; TEMP 98.4; O2SAT 96
[2022-08-07] MEDS: oxyCODONE 5MG TAB PO PRN (05:50)
[2022-08-07] MEDS: FERROUS SULFATE 325MG TAB PO SCH ×3 (08:57→22:03)
[2022-08-07] MEDS: METOPROLOL TART 12.5 MG PER 1/2 TAB PO SCH ×2 (08:57→21:00)
[2022-08-07] MEDS: VITAMIN D 1,000 INTERNATIONAL UNITS TABLET PO SCH (08:57)
[2022-08-07] MEDS: PANTOPRAZOLE 40MG TAB (PROTONIX) PO SCH (08:57)
[2022-08-07] MEDS: ACETAMINOPHEN 500 MG TAB PO SCH ×3 (08:57→22:05)
[2022-08-07] MEDS: FUROSEMIDE 20 MG TAB PO SCH (08:57)
[2022-08-07] MEDS: MULTIVITAMINS/MINERALS THERAP 1 TAB PO SCH (08:57)
[2022-08-07] MEDS: OYSTER SHELL CALCIUM 500 MG TAB PO SCH (08:58)
[2022-08-07] MEDS: LACTOBACILLUS ACIDOPHILUS CAP (BACID) PO SCH ×2 (08:58→18:00)
[2022-08-07] MEDS: GABAPENTIN 100 MG CAP PO SCH ×3 (08:58→22:04)
[2022-08-07 14:00] VITALS: BP 113/56; TEMP 98.2; O2SAT 99
[2022-08-07 20:00] VITALS: BP 138/66; TEMP 97.3; O2SAT 99
[2022-08-07] MEDS: SENNA 8.6 MG TAB (SENOKOT) PO SCH (21:00)
[2022-08-08 06:00] VITALS: BP 113/54; TEMP 98.3; O2SAT 99
[2022-08-08] MEDS: FERROUS SULFATE 325MG TAB PO SCH ×2 (07:48→21:00)
[2022-08-08] MEDS: OYSTER SHELL CALCIUM 500 MG TAB PO SCH (07:53)
[2022-08-08] MEDS: VITAMIN D 1,000 INTERNATIONAL UNITS TABLET PO SCH (07:53)
[2022-08-08] MEDS: MULTIVITAMINS/MINERALS THERAP 1 TAB PO SCH (07:53)
[2022-08-08] MEDS: LACTOBACILLUS ACIDOPHILUS CAP (BACID) PO SCH ×2 (07:53→17:07)
[2022-08-08] MEDS: PANTOPRAZOLE 40MG TAB (PROTONIX) PO SCH ×2 (07:53→20:18)
[2022-08-08] MEDS: GABAPENTIN 100 MG CAP PO SCH ×3 (07:53→20:19)
[2022-08-08] MEDS: FUROSEMIDE 20 MG TAB PO SCH (07:54)
[2022-08-08] MEDS: METOPROLOL TART 12.5 MG PER 1/2 TAB PO SCH ×2 (07:54→20:18)
[2022-08-08] MEDS: oxyCODONE 5MG TAB PO PRN (07:54)
[2022-08-08] MEDS: ACETAMINOPHEN 500 MG TAB PO SCH ×3 (07:54→20:19)
[2022-08-08] MEDS ORDERED: ENOXAPARIN 40MG/0.4ML SYRINGE (J1650 PER 10MG) SC SCH (09:00)
[2022-08-08 09:40] LABS: BASO # 0.1 10^3/uL (0.0-0.2); BASO % 0.7 % (0.0-1.0); EOS # 0.1 10^3/uL (0.0-0.5); HEMATOCRIT 25.8 % (36.0-47.0); HEMOGLOBIN 8.3 g/dl (12.0-15.5); LYMPH # 1.1 10^3/uL (1.5-5.0); LYMPH % 8.6 % (24.0-44.0); MEAN CORPUSCULAR HEMOGLOBIN 30.1 pg (27.0-33.0); MEAN CORPUSCULAR HGB CONC 32.2 g/dl (32.0-36.5); MEAN CORPUSCULAR VOLUME 93.5 fl (80.0-96.0); MONO # 1.1 10^3/uL (0.0-0.8); MONO % 8.4 % (2.0-8.0); NEUTROPHILS # 10.5 10^3/uL (1.5-8.5); NEUTROPHILS % 79.9 % (36.0-66.0); PLATELET COUNT, AUTOMATED 554 10^3/uL (150-450); RED BLOOD COUNT 2.76 10^6/uL (4.00-5.40); WHITE BLOOD COUNT 13.2 10^3/uL (4.0-10.0)
[2022-08-08 10:28] LABS: BLOOD UREA NITROGEN 17 MG/DL (9-23); CALCIUM LEVEL 8.5 MG/DL (8.3-10.6); CARBON DIOXIDE LEVEL 28 MMOL/L (20-31); CHLORIDE LEVEL 102 MMOL/L (98-107); CREATININE FOR GFR 0.66 MG/DL (0.55-1.30); GLOMERULAR FILTRATION RATE > 60.0 (>39); GLUCOSE, FASTING 109 MG/DL (74-106); POTASSIUM SERUM 4.7 MMOL/L (3.5-5.1); SODIUM LEVEL 137 MMOL/L (136-145)
[2022-08-08] MEDS: ASPIRIN 81MG ENTERIC TABLET PO SCH ×2 (11:24→20:18)
[2022-08-08 14:00] VITALS: BP 112/57; TEMP 97.7; O2SAT 100
[2022-08-08] MEDS ORDERED: OXYC-517 PO (16:54)
[2022-08-08] MEDS ORDERED: FERR1TAB8 PO (16:54)
[2022-08-08] MEDS ORDERED: PANT40TA29 PO (16:54)
[2022-08-08] MEDS ORDERED: GABA-1171 PO (16:54)
[2022-08-08] MEDS ORDERED: METO1TAB87 PO (16:54)
[2022-08-08] MEDS ORDERED: ASPI81TAEC PO (16:54)
[2022-08-08 20:00] VITALS: BP 118/57; TEMP 98.2; O2SAT 98
[2022-08-08] MEDS: SENNA 8.6 MG TAB (SENOKOT) PO SCH (21:00)
[2022-08-09 06:00] VITALS: BP 123/60; TEMP 98.2; O2SAT 97
[2022-08-09] MEDS: OYSTER SHELL CALCIUM 500 MG TAB PO SCH (08:29)
[2022-08-09 08:30] VITALS: BP 123/60
[2022-08-09] MEDS: MULTIVITAMINS/MINERALS THERAP 1 TAB PO SCH (08:30)
[2022-08-09] MEDS: ASPIRIN 81MG ENTERIC TABLET PO SCH (08:30)
[2022-08-09] MEDS: PANTOPRAZOLE 40MG TAB (PROTONIX) PO SCH (08:30)
[2022-08-09] MEDS: METOPROLOL TART 12.5 MG PER 1/2 TAB PO SCH (08:30)
[2022-08-09] MEDS: VITAMIN D 1,000 INTERNATIONAL UNITS TABLET PO SCH (08:30)
[2022-08-09] MEDS: FERROUS SULFATE 325MG TAB PO SCH (08:31)
[2022-08-09] MEDS: GABAPENTIN 100 MG CAP PO SCH (08:31)
[2022-08-09] MEDS: ACETAMINOPHEN 500 MG TAB PO SCH (08:31)
[2022-08-09] MEDS: LACTOBACILLUS ACIDOPHILUS CAP (BACID) PO SCH (08:31)
[2022-08-09] MEDS: FUROSEMIDE 20 MG TAB PO SCH (08:32)
[2022-08-09 14:00] VITALS: BP 115/56; TEMP 97.9; O2SAT 100
== END 2022-08-09 13:35 | disposition home or self-care (01) | DRG 561 ==
LOC: M PM&R 12:15
PROVIDERS: ADMIT Physical Medicine & Rehabilitation; ATTEND Physical Medicine & Rehabilitation
DX: S82.141D Displaced bicondylar fracture of right tibia, subsequent encounter for closed fracture with routine healing (principal); S83.10 Unspecified subluxation and dislocation of knee; S70.362D Insect bite (nonvenomous), left thigh, subsequent encounter; D72.829 Elevated white blood cell count, unspecified; R26.89 Other abnormalities of gait and mobility; Z74.09 Other reduced mobility; Z74.1 Need for assistance with personal care; M81.0 Age-related osteoporosis without current pathological fracture; R19.7 Diarrhea, unspecified; R03.0 Elevated blood-pressure reading, without diagnosis of hypertension; D50.9 Iron deficiency anemia, unspecified; Z79.899 Other long term (current) drug therapy; Z88.2 Allergy status to sulfonamides

== ENCOUNTER → 2022-08-04 | Day surgery (SDC) | payer MEDICARE, OTHER ==
[~2022-08-04] MED LIST changes: +ACETAMINOPHEN 1000MG 100ML IV BAG As Ordered ONE; +ASPI81TAEC PO; +FERR1TAB8 PO; +GABA-1171 PO; +LIDOCAINE 2% 100MG/5ML SDV (FOR ANES.) As Ordered ONE; +LR 1,000 ML IV SCH; +METO1TAB87 PO; +ONDANSETRON 4MG 2ML VIAL As Ordered ONE; +ONDANSETRON 4MG 2ML VIAL IV PRN; +OXYC-517 PO; +PANT40TA29 PO; +PHENYLephrine 500MCG 5ML (100MCG/ML) SYRINGE As Ordered ONE; +PROB250C PO; +ROCURONIUM BROMIDE 50MG/5ML VIAL As Ordered ONE; +SUGAMMADEX SODIUM 500 MG/5 ML VIAL (BRIDION) As Ordered ONE; +TRANEXAMIC ACID 100 MG/ML 10ML VIAL As Ordered ONE; +VANCOMYCIN 1000MG/20ML VIAL As Ordered ONE; +ceFAZolin 2 GM/D5W 50 ML IV BAG As Ordered ONE; +fentaNYL 100 MCG/2 ML INJECTION IV PRN; +fentaNYL 250 MCG/5 ML INJECTION As Ordered ONE; +oxyCODONE 5MG TAB PO PRN; +propofoL 200 MG/20 ML VIAL As Ordered ONE
[2022-08-04] MEDS: HYDROMORPHONE HCL 0.5 MG/ 0.5 ML SYRINGE IV PRN ×2 (17:28→17:34)
[2022-08-04 17:40] VITALS: TEMP 97.2
[2022-08-04 17:45] VITALS: BP 136/58; O2SAT 98
== END | disposition home or self-care (01) ==
LOC: M SDC 08:58
PROVIDERS: ATTEND Orthopaedic Surgery
DX: S82.141D Displaced bicondylar fracture of right tibia, subsequent encounter for closed fracture with routine healing (principal); W01.0XXD Fall on same level from slipping, tripping and stumbling without subsequent striking against object, subsequent encounter; Y92.89 Other specified places as the place of occurrence of the external cause; Z88.2 Allergy status to sulfonamides